=== PATIENT | female | born 1975 | race Caucasian/White ===

== ENCOUNTER → 2017-11-22 19:11 | Outpatient (REF) | payer MEDICAID, SELFPAY ==
--- NOTE | 2017-11-22 18:00 | SKI_PTH ---
PATIENT: Betzy Singh LOC: [facility] U#:[id number] AGE/SX: 49/F ROOM: RE11/22/[address]: Jordon John : 1975 BED: DIS: SPEC #: [id number] RECD: 11/23/17 12:29 STATUS: WALTER HARVEY #: [id number] MATILDE: 11/22/17 18:[address]: Jordon John DEPT: Surgical Specimen RECD BY: Gita Diaz ENTERED: 11/23/17 12:29 SP TYPE: RIKKI BELTRAN DR: Ana María Garcia Tissues: 1 - SKIN BIOPSY(SHAVE/PUNCH) 2 - SKIN BIOPSY(SHAVE/PUNCH) Procedures: SKIN LEVEL 4 Comments: [id number]
== END ==
LOC: NCHCN 19:11
PROVIDERS: PCP Nurse Practitioner Family; Visit Provider Specialist/Technologist Athletic Trainer
DX: D23.72 Other benign neoplasm of skin of left lower limb, including hip (principal); D23.71 Other benign neoplasm of skin of right lower limb, including hip
CPT/HCPCS: 88305

== ENCOUNTER 2018-07-29 08:40 | Outpatient (REF) | payer MEDICAID, SELFPAY ==
[2018-07-29 20:17] LABS: Cholesterol 170 mg/dL (50-200); Glucose 96 mg/dL (70-100); HDL Cholesterol 38 mg/dL (40-60); LDL CHOLESTEROL 110 mg/dL (<100); Potassium 3.8 mmol/L (3.5-5.1); Triglyceride 59 mg/dL (30-150)
== END 2018-07-29 09:00 ==
LOC: NCHCN 08:40
PROVIDERS: PCP Nurse Practitioner Family; Visit Provider Nurse Practitioner Family
DX: R06.83 Snoring (principal); F32.9 Major depressive disorder, single episode, unspecified; K30 Functional dyspepsia; Z00.00 Encounter for general adult medical examination without abnormal findings; M89.8X1 Other specified disorders of bone, shoulder
CPT/HCPCS: 80061; 82947; 83721; 84132

== ENCOUNTER 2018-10-29 17:46 | Emergency (ER) | payer MEDICAID, SELFPAY ==
[2018-10-29 17:52] VITALS: BP 136/91; PULSE 92; RESP 18; TEMP 36.8; O2SAT 97
--- NOTE | 2018-10-29 18:10 | W.ED.GENAD ---
Discharge Plan Disposition Patient Disposition: HOME Condition: Improving Discharge Details Chief Complaint: EarProblem Clinical Impression: Right otitis externa Primary Care Provider: Katty Abdul ED Provider: Luiz Bae Home Meds and New Rx's Prescriptions: Continued Stool Softener 50 MG capsule 1 cap PO DAILY RF: 0 fexofenadine [Aller-ease] 180 MG tablet 1 tab PO DAILY RF: 0 pseudoephedrine HCl 60 MG tablet 1 tab PO DAILY RF: 0 ibuprofen 800 MG tablet 800 mg PO TID PRN PRNQty: 30 RF: 0 multivitamin Capsule 1 cap PO DAILY RF: 0 Discharge Instructions Instructions: Otitis Externa (ED) Additional Instructions: Please use Ciprodex to right ear twice daily for 5 to 7 days time. Return for worsening discomfort or any other acute concerns. Please follow-up with your doctor if not improving in 3 days Medical Decision Making 43-year-old female with right ear pain after swimming. She did describe slapping the water but I do not appreciate that there is evidence of a right tympanic membrane rupture. Most consistent with acute otitis externa. Will treat with Ciprodex drops. She understands homecare as well as follow-up/return precautions. HPI General Mode of arrival: ambulatory. Date/Time Provider Initiated Documentation: 10/29/18 17:49. Limitations to Documentation: no limitations. Information obtained by: patient. History of Present Illness 43 year old F presents to the emergency department with the chief complaint of Right ear pain after some, Quality is described as constant, and is localized to the head and right. Patient reports no radiation. Patient started experiencing this hour(s) and it has been constant. No relieving factors improve symptom(s), No exacerbating factors reported . Patient notes no other symptoms.. Patient did receive the following treatments prior to arrival, none Related Data Home Medications Medication Instructions Recorded Confirmed Stool Softener 1 cap PO DAILY 09/12/14 10/29/18 fexofenadine [Aller-ease] 1 tab PO DAILY 09/12/14 10/29/18 ibuprofen 800 mg PO TID PRN PRN #30 tablet 09/12/14 10/29/18 pseudoephedrine HCl 1 tab PO DAILY 09/12/14 10/29/18 multivitamin 1 cap PO DAILY 10/29/18 10/29/18 Previous Rx's Medication Instructions Recorded ibuprofen 800 mg PO TID PRN PRN #30 tablet 09/12/14 Allergies Allergy/AdvReac Type Severity Reaction Status Date / Time Penicillins Allergy Skin Rash Unverified 10/29/18 17:55 enviornmental AdvReac Mild head Uncoded 09/12/14 16:20 congestion General Stated Complaint: EarProblem ERICK: 4 Review of Systems Review of Systems No recent illness. 4 systems reviewed and otherwise negative [facility] Social History Smoking/Tobacco Use Status: Never Alcohol Intake: never Drug use: Never Do you feel safe at home: Yes Do you feel safe in your relationship?: Yes Exam Narrative Exam Narrative: GEN: awake, alert, oriented 3. Pleasant, well groomed, interactive. HEAD: Normocephalic, atraumatic ENT: Mucous membranes moist, oropharynx unremarkable, External ear exam unremarkable. The right external ear canal is swollen with mild cobblestoning present. Unable to completely visualize the right tympanic membrane but do appreciate good light reflex with great fluorescent TM. Left tympanic membrane unremarkable EYES: PERRL, EOMI NECK: Full ROM, no AMANDA, no menigismus Neuro: Grossly normal neurologic exam, conversant, interactive. Psych: Speech fluent, thoughts congruent, affect normal Course Vital Signs Temperature 36.8 C 10/29/18 17:52 Pulse 92 H 10/29/18 17:52 Respiratory Rate 18 10/29/18 17:52 Blood Pressure 136/91 H 10/29/18 17:52 Pulse Oximetry 97 10/29/18 17:52 Temperature 36.8 C 10/29/18 17:52 Temperature Source Tympanic 10/29/18 17:52 Pulse 92 H 10/29/18 17:52 Respiratory Rate 18 10/29/18 17:52 Respiratory Effort Non-Labored 10/29/18 17:54 Blood Pressure 136/91 H 10/29/18 17:52 Blood Pressure Position Sitting 10/29/18 17:52 Pulse Oximetry 97 10/29/18 17:52 Oxygen Delivery Method Room Air 10/29/18 17:52 Oxygen Flow Rate 0 10/29/18 17:52 Pain Level 10 10/29/18 17:57
[2018-10-29] MEDS: Ciprofloxacin/Dexameth. 7.5 ML BTL AD (18:16)
== END 2018-10-29 18:30 | disposition home or self-care (01) ==
PROVIDERS: Emergency Provider Emergency Medicine; PCP Nurse Practitioner Family
DX: H60.501 Unspecified acute noninfective otitis externa, right ear (principal)
CPT/HCPCS: 99283

== ENCOUNTER 2020-08-30 16:01 | Outpatient (REF) | payer MEDICAID, SELFPAY ==
[2020-08-30 16:28] LABS: ALT 28 U/L (14-59); AST 17 U/L (15-37); Albumin 3.9 g/dL (3.4-5.0); Alkaline Phosphatase 63 U/L (46-116); BUN 9 mg/dL (7-18); Bilirubin, Total 0.5 mg/dL (0.2-1.0); CREATININE 0.9 mg/dL (0.55-1.02); Calcium 9.3 mg/dL (8.5-10.1); Calculated LDL 112 mg/dL (<100); Chloride 103 mmol/L (98-107); Cholesterol 180 mg/dL (<200); Glucose 97 mg/dL (74-106); HDL Cholesterol 38 mg/dL (40-60); Potassium 3.8 mmol/L (3.5-5.1); Sodium 140 mmol/L (136-145); Total Protein 7.4 g/dL (6.4-8.2); Triglyceride 151 mg/dL (<150)
== END 2020-08-30 16:02 | disposition home or self-care (01) ==
LOC: NCHCN 16:01
PROVIDERS: PCP Nurse Practitioner Family; Visit Provider Physician Assistant Medical
DX: Z13.220 Encounter for screening for lipoid disorders (principal); Z13.228 Encounter for screening for other metabolic disorders; Z00.00 Encounter for general adult medical examination without abnormal findings
CPT/HCPCS: 80053; 80061

== ENCOUNTER 2021-04-08 22:03 | Emergency (ER) | payer MEDICAID, SELFPAY ==
[2021-04-08 22:05] VITALS: BP 144/93; PULSE 83; RESP 18; TEMP 36.2; O2SAT 98
--- NOTE | 2021-04-08 22:15 | ED.GENADUL_ITS ---
Discharge Plan Disposition Patient Disposition: HOME Condition: Stable Discharge Details Clinical Impression: Corneal abrasion Primary Care Provider: Katty Abdul ED Provider: Master Bender Home Meds and New Rx's Prescriptions: Continued Stool Softener 50 MG capsule 1 cap PO DAILY RF: 0 fexofenadine [Aller-ease] 180 MG tablet 1 tab PO DAILY RF: 0 pseudoephedrine HCl 60 MG tablet 1 tab PO DAILY RF: 0 ibuprofen 800 MG tablet 800 mg PO TID PRN PRNQty: 30 RF: 0 multivitamin Capsule 1 cap PO DAILY RF: 0 Discharge Instructions Instructions: Corneal Abrasion (ED) Additional Instructions: you can take 1000mg tylenol and 600mg ibuprofen every 6 hours as needed if pain not improving by call Ángelae for an appointment if you feel more ill, have severe worsening pain or decrease in vision return to the emergency department use the antibiotic ointment 3 times a day for 5 days Medical Decision Making 45 yo female comes in with right eye pain. She states her 6 year old child was near her, rolled over and hit her in the right eye and has had pain since so came here. Denies fevers or discharge or vision changes. She localizes it to the surface of the eye on the superior part of her eye. No perioribtal swelling, left conjunctiva normal, right conjunctiva has erythema. PERRL and eomi. No visible foreign body on exam nor on inner eyelids. Tetracaine placed with immediate relief of pain. iop 14 in the left and 15 in the right. She has a 2mm corneal abrasion at the 12 oclock position superior to the iris and no findings to suggest globe rupture. left eye acuity is 20/30 and right eye is 20/25. Will start her on erytheromycin ointment to prevent infection and advised if not better within 2 days to see her auricular detoxification specialist, states she sees Kerry. Return precautions given Differential Diagnosis Differential Diagnosis: corneal abrasion, foreign body, conjunctivitis HPI General Mode of arrival: ambulatory . Date/Time Provider Initiated Documentation: 04/08/21 22:04 . Limitations to Documentation: no limitations . Information obtained by: patient . History of Present Illness 45 year old F presents to the emergency department with the chief complaint of right eye pain, described as moderate, Quality is described as aching, and is localized to the eyes. Patient started experiencing this hour(s) (3) and it has been constant. No relieving factors improve symptom(s), No exacerbating factors reported . Patient notes no other symptoms.. Patient did receive the following treatments prior to arrival, none Related Data Home Medications Medication Instructions Recorded Confirmed Stool Softener 1 cap PO DAILY 09/12/14 04/08/21 fexofenadine [Aller-ease] 1 tab PO DAILY 09/12/14 04/08/21 ibuprofen 800 mg PO TID PRN PRN #30 tablet 09/12/14 04/08/21 pseudoephedrine HCl 1 tab PO DAILY 09/12/14 04/08/21 multivitamin 1 cap PO DAILY 10/29/18 04/08/21 Previous Rx's Medication Instructions Recorded ibuprofen 800 mg PO TID PRN PRN #30 tablet 09/12/14 Allergies Allergy/AdvReac Type Severity Reaction Status Date / Time Penicillins Allergy Skin Rash Unverified 04/08/21 22:07 enviornmental AdvReac Mild head Uncoded 04/08/21 22:07 congestion General Stated Complaint: EyeProblem ERICK: 4 Review of Systems All systems reviewed & are unremarkable except as noted in HPI and below Constitutional Constitutional: Denies chills, Denies fever(s) and Denies weakness Cardiovascular Cardiovascular: Denies chest pain and Denies dyspnea Respiratory Respiratory: Denies cough and Denies dyspnea Gastrointestinal Gastrointestinal: Denies abdominal pain, Denies nausea and Denies vomiting Musculoskeletal Musculoskeletal: Denies joint swelling Neurologic Neurologic: Denies weakness PFSH All Active Problems (Updated 04/08/21 @ 22:26 by Master Bender MD) Corneal abrasion (Acute) Social History Smoking/Tobacco Use Status: Never Smoking risk assessment performed?: Yes Alcohol Intake: never Drug use: Never Do you feel safe at home: Yes Do you feel safe in your relationship?: Yes Exam Const General: no acute distress Orientation: alert HENMT Head: normal to inspection Ears: external ears normal General nose exam: external nose normal Mouth: moist mucous membranes Eyes Alignment and Position: alignment normal Pupils: PERRL Neck Neck: normal visual inspection Resp Effort & Inspection: normal respiratory effort and able to speak in complete sentences Cardio Rate: regular rate GI Palpation: soft and nontender Skin General skin exam: no rashes or lesions noted Neuro General: patient alert and patient oriented x3 Extrem General: normal to inspection Psych Mental Status: mental status grossly normal Course Vital Signs Vital signs: Vital Signs Temperature 36.2 C L 04/08/21 22:05 Pulse 83 04/08/21 22:05 Respiratory Rate 18 04/08/21 22:05 Blood Pressure 144/93 H 04/08/21 22:05 Pulse Oximetry 98 04/08/21 22:05 Temperature 36.2 C L 04/08/21 22:05 Temperature Source Temporal Artery Scan 04/08/21 22:05 Pulse 83 04/08/21 22:05 Respiratory Rate 18 04/08/21 22:05 Respiratory Effort Non-Labored 04/08/21 22:08 Blood Pressure 144/93 H 04/08/21 22:05 Pulse Oximetry 98 04/08/21 22:05 Oxygen Delivery Method Room Air 04/08/21 22:05 Oxygen Flow Rate 0 04/08/21 22:05 Pain Level 10 04/08/21 22:05
[2021-04-08] MEDS: Balanced Salt Solution 15 ML BTL OP (22:23)
[2021-04-08] MEDS: Erythromycin Ophth Oint 3.5 GM TUBE OP (22:23)
[2021-04-08] MEDS: Tetracaine 0.5% 4 ML BTL OP (22:23)
[2021-04-08] MEDS: Fluorescein STRIPS 100/BOX 1 MG OP (22:24)
[2021-04-08 22:26] VITALS: BP 144/93; PULSE 83; RESP 18; TEMP 36.2; O2SAT 98
== END 2021-04-08 22:07 | disposition home or self-care (01) ==
PROVIDERS: Emergency Provider Emergency Medicine; PCP Nurse Practitioner Family
DX: S05.01XA Injury of conjunctiva and corneal abrasion without foreign body, right eye, initial encounter (principal); W50.0XXA Accidental hit or strike by another person, initial encounter
CPT/HCPCS: 99283

== ENCOUNTER 2021-05-18 07:10 | Emergency (ER) | payer MEDICAID, SELFPAY ==
[2021-05-18 07:14] VITALS: BP 131/86; PULSE 77; RESP 12; TEMP 35.8; O2SAT 98
--- NOTE | 2021-05-18 07:22 | W.ED.GENAD ---
Discharge Plan Disposition Patient Disposition: HOME Condition: Improving Discharge Details Clinical Impression: Abrasion of cornea, right Primary Care Provider: Katty Abdul ED Provider: Luiz Bae Home Meds and New Rx's Prescriptions: Continued Stool Softener 50 MG capsule 1 cap PO DAILY 0RF fexofenadine [Aller-ease] 180 MG tablet 1 tab PO DAILY 0RF pseudoephedrine HCl 60 MG tablet 1 tab PO DAILY 0RF ibuprofen 800 MG tablet 800 mg PO TID PRN PRNQty: 30 0RF multivitamin Capsule 1 cap PO DAILY 0RF Discharge Instructions Instructions: Corneal Abrasion (ED) Additional Instructions: Please call [facility] on Wednesday for a follow-up and recheck. Erythromycin ointment to right eye 4-5 times daily while awake. May apply cool compress to area to reduce discomfort. Wearing sunglasses may aid in decreasing discomfort as well. Return to the ER if you develop an increasing and more severe pain, purulent discharge from the eye, or any other acute concerns. Medical Decision Making 45-year-old female who does wear contact lenses. After placing contact lenses this morning she felt a foreign body sensation in her right eye, removed the contact lenses with persistence of the foreign body sensation. She has had a previous corneal abrasion to that eye requiring serial visits to optometry and a contact lens Band-Aid. Today appears to be a simple subtle corneal abrasion. Will treat with erythromycin ointment and have her follow-up in optometry for recheck. HPI General Mode of arrival: ambulatory. Date/Time Provider Initiated Documentation: 05/18/21 07:20. Limitations to Documentation: no limitations. Information obtained by: patient. History of Present Illness 45 year old F presents to the emergency department with the chief complaint of R eye discomfort, described as mild, Quality is described as constant, and is localized to the eyes and right. Patient reports no radiation. Patient started experiencing this hour(s) and it has been constant. improves with No relieving factors improve symptom(s), No exacerbating factors reported . Patient notes denies fever/chills and headaches. Patient did receive the following treatments prior to arrival, none Related Data Home Medications Medication Instructions Recorded Confirmed docusate sodium 50 mg capsule 1 cap PO DAILY 09/12/14 05/18/21 (Stool Softener) fexofenadine 180 mg tablet 1 tab PO DAILY 09/12/14 05/18/21 (Aller-ease) ibuprofen 800 mg tablet 800 mg PO TID PRN PRN #30 tablet 09/12/14 05/18/21 pseudoephedrine HCl 60 mg tablet 1 tab PO DAILY 09/12/14 05/18/21 multivitamin 1 cap PO DAILY 10/29/18 05/18/21 Previous Rx's Medication Instructions Recorded ibuprofen 800 mg tablet 800 mg PO TID PRN PRN #30 tablet 09/12/14 Allergies Allergy/AdvReac Type Severity Reaction Status Date / Time Penicillins Allergy Skin Rash Unverified 05/18/21 07:17 enviornmental AdvReac Mild head Uncoded 05/18/21 07:17 congestion General Stated Complaint: EyeProblem ERICK: 4 Review of Systems Narrative: Denies recent illness. Otherwise healthy person. PFSH All Active Problems (Updated 05/18/21 @ 07:37 by Luiz Bae MD) Abrasion of cornea, right (Acute) Social History Smoking/Tobacco Use Status: Never Smoking risk assessment performed?: Yes Alcohol Intake: never Drug use: Never Substance use type: does not use Do you feel safe at home: Yes Do you feel safe in your relationship?: Yes Exam Narrative Exam Narrative: GEN: awake, alert, oriented 3. Pleasant, well groomed, interactive. HEAD: Normocephalic, atraumatic ENT: Mucous membranes moist, oropharynx unremarkable, External ear exam unremarkable EYES: PERRL, EOMI, there is subtle corneal abrasion superiorly above the axis of vision. No foreign body appreciated. Negative Ana Cristina sign. Neuro: Grossly normal neurologic exam, conversant, interactive. Psych: Speech fluent, thoughts congruent, affect normal Course Vital Signs Vital signs: Vital Signs Temperature 35.8 C L 05/18/21 07:14 Pulse 77 05/18/21 07:14 Respiratory Rate 12 05/18/21 07:14 Blood Pressure 131/86 05/18/21 07:14 Pulse Oximetry 98 05/18/21 07:14 Temperature 35.8 C L 05/18/21 07:14 Pulse 77 05/18/21 07:14 Respiratory Rate 12 05/18/21 07:14 Respiratory Effort Non-Labored 05/18/21 07:16 Blood Pressure 131/86 05/18/21 07:14 Blood Pressure Position Sitting 05/18/21 07:14 Pulse Oximetry 98 05/18/21 07:14 Oxygen Delivery Method Room Air 05/18/21 07:14 Oxygen Flow Rate 0 05/18/21 07:14 Pain Level 8 05/18/21 07:14
[2021-05-18] MEDS: Fluorescein STRIPS 100/BOX 1 MG OP (07:24)
[2021-05-18] MEDS: Tetracaine 0.5% 4 ML BTL OP (07:25)
[2021-05-18] MEDS: Erythromycin Ophth Oint 3.5 GM TUBE OP (07:26)
== END 2021-05-18 07:51 | disposition home or self-care (01) ==
PROVIDERS: Emergency Provider Emergency Medicine; PCP Nurse Practitioner Family
DX: S05.01XA Injury of conjunctiva and corneal abrasion without foreign body, right eye, initial encounter (principal); X58.XXXA Exposure to other specified factors, initial encounter
CPT/HCPCS: 99283

== ENCOUNTER 2021-06-14 17:52 | Emergency (ER) | payer MEDICAID, SELFPAY ==
[2021-06-14 17:57] VITALS: BP 129/79; PULSE 93; RESP 17; TEMP 36.7; O2SAT 96
--- NOTE | 2021-06-14 18:09 | ED.GENADUL_ITS ---
Discharge Plan Disposition Patient Disposition: HOME Condition: Stable Discharge Details Clinical Impression: Acute bacterial conjunctivitis of right eye Primary Care Provider: Katty Abdul ED Provider: Jessica Almanza Home Meds and New Rx's Prescriptions: Continued fexofenadine [Aller-ease] 180 MG tablet 1 tab PO DAILY 0RF ibuprofen 800 MG tablet 800 mg PO TID PRN PRNQty: 30 0RF multivitamin Capsule 1 cap PO DAILY 0RF No Action Stool Softener 50 MG capsule 1 cap PO DAILY 0RF pseudoephedrine HCl 60 MG tablet 1 tab PO DAILY 0RF Discharge Instructions Instructions: Conjunctivitis (ED) Additional Instructions: Use the eyedrops 3 times daily while awake for the next 7 to 10 days. Wash hands after touching your eye. This can be contagious. [facility] with [facility] if no improvement in the next 3 to 5 days. Please take Tylenol or Ibuprofen with food every 4-6 hours as needed for pain and swelling. Follow up with primary care provider in 3-5 days. Return to ED sooner if any worsening or concerns. Increase oral fluids. Referrals: Katty Abdul [Primary Care Provider] - Medical Decision Making 46-year-old female presents to the ER with chief complaint of right eye irritation, tearing and erythema which began this morning. Patient states that she woke up this way. She does have a history approximately month ago of a corneal abrasion and was on erythromycin ointment. Patient denies any known injury or foreign body. She also reports that she has crusting upon awakening in the morning denies any pruritus denies any sensitivity to light. Lemus lab exam completed no visualized foreign body or uptake in dye. No corneal abrasion. I do suspect bacterial conjunctivitis due to the patient's report of discharge and crusty in the morning and irritation. We will give patient polymyxin eyedrops and instructed to use 4 times daily while awake x7 to 10 days. Instructed follow-up with vending machine attendant. HPI General Mode of arrival: ambulatory . Date/Time Provider Initiated Documentation: 06/14/21 17:53 . Limitations to Documentation: no limitations . Information obtained by: patient and RN notes reviewed . HPI Narrative: 46-year-old female presents to the ER with chief complaint of right eye irritation, tearing and erythema which began this morning. Patient states that she woke up this way. She does have a history approximately month ago of a corneal abrasion and was on erythromycin ointment. Patient denies any known injury or foreign body. She also reports that she has crusting upon awakening in the morning denies any pruritus denies any sensitivity to light. Related Data Home Medications Medication Instructions Recorded Confirmed docusate sodium 50 mg capsule 1 cap PO DAILY 09/12/14 06/14/21 (Stool Softener) fexofenadine 180 mg tablet 1 tab PO DAILY 09/12/14 06/14/21 (Aller-ease) ibuprofen 800 mg tablet 800 mg PO TID PRN PRN #30 tablet 09/12/14 06/14/21 pseudoephedrine HCl 60 mg tablet 1 tab PO DAILY 09/12/14 06/14/21 multivitamin 1 cap PO DAILY 10/29/18 06/14/21 Previous Rx's Medication Instructions Recorded ibuprofen 800 mg tablet 800 mg PO TID PRN PRN #30 tablet 09/12/14 Allergies Allergy/AdvReac Type Severity Reaction Status Date / Time Penicillins Allergy Skin Rash Unverified 06/14/21 18:03 enviornmental AdvReac Mild head Uncoded 06/14/21 18:03 congestion General Stated Complaint: EyeProblem REICK: 4 Review of Systems All systems reviewed & are unremarkable except as noted in HPI and below Eyes Eyes: Reports eye discharge, Reports irritation, Denies itchy eyes and Denies photophobia Allergic/Immunologic Allergic/Immunologic: Denies itchy eyes PFSH All Active Problems (Updated 06/14/21 @ 18:30 by Jessica Almanza) Abrasion of cornea, right (Acute) Acute bacterial conjunctivitis of right eye (Acute) Social History Smoking/Tobacco Use Status: Never Smoking risk assessment performed?: Yes Alcohol Intake: never Drug use: Never Substance use type: does not use Do you feel safe at home: Yes Do you feel safe in your relationship?: Yes Exam Eyes Alignment and Position: alignment normal Conjunctivae: conjunctival abnormality right conjunctival injection Cornea: corneas normal and fluorescein used (No uptake in dye, ) Pupils: PERRL EOM: EOM intact bilaterally Direct ophthalmoscopy: normal light reflex Course Vital Signs Vital signs: Vital Signs Temperature 36.7 C 06/14/21 17:57 Pulse 93 H 06/14/21 17:57 Respiratory Rate 17 06/14/21 17:57 Blood Pressure 129/79 06/14/21 17:57 Pulse Oximetry 96 06/14/21 17:57 Temperature 36.7 C 06/14/21 17:57 Temperature Source Temporal Artery Scan 06/14/21 17:57 Pulse 93 H 06/14/21 17:57 Respiratory Rate 17 06/14/21 17:57 Respiratory Effort Non-Labored 06/14/21 18:00 Blood Pressure 129/79 06/14/21 17:57 Blood Pressure Position Sitting 06/14/21 17:57 Pulse Oximetry 96 06/14/21 17:57 Oxygen Delivery Method Room Air 06/14/21 17:57 Oxygen Flow Rate 0 06/14/21 17:57 Pain Level 7 06/14/21 17:57 Comment 06/14/21 17:57
[2021-06-14] MEDS: Fluorescein STRIPS 100/BOX 1 MG OP (18:20)
[2021-06-14] MEDS: Balanced Salt Solution 15 ML BTL OP (18:20)
[2021-06-14] MEDS: Tetracaine 0.5% 4 ML BTL OP (18:20)
[2021-06-14] MEDS: Polymyxin B/Trimethoprim Ophth Soln 10 ML BTL OD (18:32)
== END 2021-06-14 18:33 | disposition home or self-care (01) ==
PROVIDERS: Emergency Provider Registered Nurse Emergency; PCP Nurse Practitioner Family
DX: H10.31 Unspecified acute conjunctivitis, right eye (principal)
CPT/HCPCS: 99283

== ENCOUNTER 2021-07-13 06:41 | Emergency (ER) | payer MEDICAID, SELFPAY ==
[2021-07-13 06:50] VITALS: BP 136/94; PULSE 80; RESP 16; TEMP 36.8; O2SAT 98
--- NOTE | 2021-07-13 07:24 | ED.GENADUL_ITS ---
Discharge Plan Disposition Patient Disposition: HOME Condition: Good Discharge Details Clinical Impression: Abrasion of cornea, right, Allergic rhinitis Primary Care Provider: Katty Abdul ED Provider: Tyson Hoang Home Meds and New Rx's Prescriptions: Continued Stool Softener 50 MG capsule 1 cap PO DAILY 0RF fexofenadine [Aller-ease] 180 MG tablet 1 tab PO DAILY 0RF pseudoephedrine HCl 60 MG tablet 1 tab PO DAILY 0RF ibuprofen 800 MG tablet 800 mg PO TID PRN PRNQty: 30 0RF multivitamin Capsule 1 cap PO DAILY 0RF Discharge Instructions Instructions: Corneal Abrasion (ED) Additional Instructions: At this time you have a corneal abrasion. Please take the polymyxin eyedrops that you are taking before. Please take them as directed. Do not wear any contact lenses for the next 1 to 2 weeks or until you are reassessed by your vacuum forming machine operator/ocean export agent. Please also use the artificial tears that you have in your affected eye 2-3 times per day. If you notice any worsening of your symptoms, or any new symptoms such as vomiting, diarrhea, fever, chills, shortness of breath, chest pain, numbness, weakness, or fainting , please return immediately to the emergency department for reevaluation. Please follow up with your primary care provider as soon as possible for reassessment and reevaluation. As always, it was a pleasure participating in your medical care today. Referrals: Katty Abdul [Primary Care Provider] - Discharge Data Discharge Date/Time-TO BE ENTERED AT DEPARTURE: 07/13/21 07:30 Medical Decision Making This is a 46-year-old female with a past medical history of allergic rhinitis who presents today for evaluation of discharge coming from both of her eyes, so some mild pain and irritation in her right eye. She admits to nasal congestion as well. Symptoms started 3 to 4 days ago. She has a contact lens wear. She did recently have a bacterial conjunctivitis, for which she was prescribed and has taken polymyxin eyedrops. She has not been on these for some time though. She has no other complaints at this time. No visual changes, no difficulty with opening or closing her eyes. No headache. Exam demonstrates mild conjunctivitis of the right eye. Small amount of corneal uptake at 3 o'clock position of the right eye. Eversion of the lid shows no evidence of foreign body. No evidence of significant corneal ulcer. Recommend that the patient restarts her antibiotic drop, Keflex contact lens use until reassessed by an vacuum forming machine operator. Scheme Technician, and continues to take her home antiallergy medications. Discussed red flags which to return. I have extensively reviewed the treatment plan and discharge instructions with the patient. I have addressed all patient concerns at this time. The patient was made aware of what symptoms to monitor for that would warrant a return to the emergency department. Discussed the plan with the patient, they demonstrate v erbal understanding and agreement with our assessment and plan at this time. The documentation in this chart was dictated using [employer] dictation software. Please excuse any dictation errors. HPI General Date/Time Provider Initiated Documentation: 07/13/21 07:22 . HPI Narrative: This is a 46-year-old female with a past medical history of allergic rhinitis who presents today for evaluation of discharge coming from both of her eyes, so some mild pain and irritation in her right eye. She admits to nasal congestion as well. Symptoms started 3 to 4 days ago. She has a contact lens wear. She did recently have a bacterial conjunctivitis, for which she was prescribed and has taken polymyxin eyedrops. She has not been on these for some time though. She has no other complaints at this time. No visual changes, no difficulty with opening or closing her eyes. No headache. Related Data Home Medications Medication Instructions Recorded Confirmed docusate sodium 50 mg capsule 1 cap PO DAILY 09/12/14 07/13/21 (Stool Softener) fexofenadine 180 mg tablet 1 tab PO DAILY 09/12/14 07/13/21 (Aller-ease) ibuprofen 800 mg tablet 800 mg PO TID PRN PRN #30 tablet 09/12/14 07/13/21 pseudoephedrine HCl 60 mg tablet 1 tab PO DAILY 09/12/14 07/13/21 multivitamin 1 cap PO DAILY 10/29/18 07/13/21 Previous Rx's Medication Instructions Recorded ibuprofen 800 mg tablet 800 mg PO TID PRN PRN #30 tablet 09/12/14 Allergies Allergy/AdvReac Type Severity Reaction Status Date / Time Penicillins Allergy Skin Rash Unverified 07/13/21 06:56 enviornmental AdvReac Mild head Uncoded 07/13/21 06:56 congestion General Stated Complaint: EyeProblem ERICK: 4 Review of Systems All systems reviewed & are unremarkable except as noted in HPI and below PFSH All Active Problems Acute bacterial conjunctivitis of right eye (Acute) Abrasion of cornea, right (Acute) Allergic rhinitis (Acute) Social History Smoking/Tobacco Use Status: Never Smoking risk assessment performed?: Yes Alcohol Intake: never Drug use: Never Substance use type: does not use Do you feel safe at home: Yes Do you feel safe in your relationship?: Yes Exam Narrative Exam Narrative: 1.Const: Well-nourished, Well-developed, appearing stated age 2.Eyes: PERRL, mild conjunctival injection on the right. Righteye: EOMI, PERRL, Peripheral vision intact. No nystagmus. No clinical signs of septal/orbital cellulitis, no redness around the eye, no proptosis. No hyphema, no signs of trauma around the eye, no periorbital emphysema. No sluggishness of the pupil. No ophthalmoplegia. No afferent pupillary defect. Fluorescein uptake is present on exam is in the 3 o'clock position on the cornea of the right eye, negative Ana Cristina sign. Eversion of the upper and lower lid shows no evidence of foreign body. 3.ENT: Atraumatic external nose and ears. Moist MM. Neck: Symmetric, trachea midline, No thyromegaly. 4.CVS: +S1/S2, No murmurs or gallops. Peripheral pulses 2+ and equal in all extremities. Brisk capillary refill in all extremities. 5.RESP: Unlabored respiratory effort. Clear to auscultation bilaterally. No wheezes rales or rhonchi 6.GI: Soft, Nontender/Nondistended, No hepatosplenomegaly. No guarding or rebound. 7.MSK: Normocephalic/Atraumatic, Extremities w/o deformity or ttp No cyanosis or clubbing, Normal movement of all extremities 8.Skin: Warm, Dry. No rashes or lesions. 9.Neuro: stoker erector II-XII grossly intact. Sensation grossly intact, no focal neurologic deficits. 10.Psych: (AAO) x3. Appropriate mood and affect Course Vital Signs Vital signs: Vital Signs Temperature 36.8 C 07/13/21 06:50 Pulse 80 07/13/21 06:50 Respiratory Rate 16 07/13/21 06:50 Blood Pressure 136/94 H 07/13/21 06:50 Pulse Oximetry 98 07/13/21 06:50 Temperature 36.8 C 07/13/21 06:50 Temperature Source Temporal Artery Scan 07/13/21 06:50 Pulse 80 07/13/21 06:50 Respiratory Rate 16 07/13/21 06:50 Respiratory Effort Non-Labored 07/13/21 06:53 Blood Pressure 136/94 H 07/13/21 06:50 Blood Pressure Position Sitting 07/13/21 06:50 Pulse Oximetry 98 07/13/21 06:50 Oxygen Delivery Method Room Air 07/13/21 06:50 Oxygen Flow Rate 0 07/13/21 06:50 Pain Level 9 07/13/21 06:50
[2021-07-13] MEDS: Fluorescein STRIPS 100/BOX 1 MG (07:29)
[2021-07-13] MEDS: Tetracaine 0.5% 4 ML BTL (07:29)
== END 2021-07-13 07:30 | disposition home or self-care (01) ==
PROVIDERS: Emergency Provider Student in an Organized Health Care Education/Training Program; PCP Nurse Practitioner Family
DX: S05.01XA Injury of conjunctiva and corneal abrasion without foreign body, right eye, initial encounter (principal); X58.XXXA Exposure to other specified factors, initial encounter; J30.9 Allergic rhinitis, unspecified
CPT/HCPCS: 99283

== ENCOUNTER 2021-11-29 12:43 | Emergency (ER) | payer MEDICAID, SELFPAY ==
[2021-11-29 12:46] VITALS: BP 155/98; PULSE 72; RESP 18; TEMP 37.2; O2SAT 99
--- NOTE | 2021-11-29 13:16 | ED.GENADUL_ITS ---
Discharge Plan Disposition Patient Disposition: HOME Condition: Stable Discharge Details Clinical Impression: Abrasion, corneal Primary Care Provider: Katty Abdul ED Provider: Sarath Norwood Home Meds and New Rx's Prescriptions: New ofloxacin 0.3 % drops See Rx Instructions .ROUTE .COMPLEX Qty: 5 0RF Rx Instructions: put 1-2 drps into affected eye(s) every 2-4 h x 2 days, then 1-2 drps 4 times/day days 3-7 No Action Stool Softener 50 MG capsule 1 cap PO DAILY fexofenadine [Aller-ease] 180 MG tablet 1 tab PO DAILY pseudoephedrine HCl 60 MG tablet 1 tab PO DAILY ibuprofen 800 MG tablet 800 mg PO TID PRN PRNQty: 30 0RF multivitamin Capsule 1 cap PO DAILY Discharge Instructions Instructions: Corneal Abrasion (ED) Additional Instructions: Please follow-up with your primary care physician. Please return the emergency department if you develop any worsening symptoms such as worsening pain redness drainage or change in vision or other abnormal symptoms Medical Decision Making 46-year-old female history of prior corneal abrasion presents with discomfort in right eye as well as some tearing and redness over the last day, was cleaning a dionna room with boxes the other day. Patient is fully tearing of right has 20/20 vision, evidence of punctate corneal abrasions involving cornea overlying mid pupil, no evidence of foreign body, eye was irrigated with normal saline. Patient be started on ofloxacin drops. Given home care instructions and return precautions. HPI General Date/Time Provider Initiated Documentation: 11/29/21 12:44 . HPI Narrative: 46-year-old female presents with right eye redness and discomfort that she noticed this morning she does have a history of a corneal abrasion. Patient Dors that she was cleaning out a dionna room with boxes yesterday and today. Does not remember any direct trauma. Denies change in vision. Related Data Home Medications Medication Instructions Recorded Confirmed docusate sodium 50 mg capsule 1 cap PO DAILY 09/12/14 11/29/21 (Stool Softener) fexofenadine 180 mg tablet 1 tab PO DAILY 09/12/14 11/29/21 (Aller-ease) ibuprofen 800 mg tablet 800 mg PO TID PRN PRN ##30 09/12/14 11/29/21 pseudoephedrine HCl 60 mg tablet 1 tab PO DAILY 09/12/14 11/29/21 multivitamin 1 cap PO DAILY 10/29/18 11/29/21 ofloxacin 0.3 % eye drops See Rx Instructions ophthalmic 11/29/21 (eye) .COMPLEX #5 mL Previous Rx's Medication Instructions Recorded ibuprofen 800 mg tablet 800 mg PO TID PRN PRN ##30 09/12/14 ofloxacin 0.3 % eye drops See Rx Instructions ophthalmic 11/29/21 (eye) .COMPLEX #5 mL Allergies Allergy/AdvReac Type Severity Reaction Status Date / Time Penicillins Allergy Skin Rash Unverified 07/13/21 06:56 enviornmental AdvReac Mild head Uncoded 07/13/21 06:56 congestion General Stated Complaint: EyeProblem ERICK: 4 Review of Systems Narrative: Review of Systems Constitutional: negative Eyes: Eye discomfort ENT: negative Cardiovascular: negative Respiratory: negative Gastrointestinal: negative : negative Musculoskeletal: negative Skin: negative Neurologic: negative Psych: negative PFSH All Active Problems (Updated 11/29/21 @ 13:21 by Sarath Norwood MD) Abrasion, corneal (Acute) Social History Smoking/Tobacco Use Status: Never Smoking risk assessment performed?: Yes Alcohol Intake: never Drug use: Never Substance use type: does not use Do you feel safe at home: Yes Do you feel safe in your relationship?: Yes Exam Narrative Exam Narrative: Physical Examination General: alert, awake, cooperative, resting comfortably, no acute distress HEENT: OD 20/20 normal conjunctiva slight tearing, 2 punctate superficial areas of fluorescein uptake, no foreign bodies appreciated on slit-lamp; OS: 20/20 normal conjunctiva; normocephalic, atraumatic; PERRL, EOM intact, conjunctiva normal; no nasal discharge; moist mucous membranes, oral and pharyngeal mucosa normal, tolerating secretions Neck: supple, trachea midline; full ROM Chest: normal to inspection Respiratory: normal respiratory effort, speaking in full sentences, clear to auscultation, no wheezing, rales or rhonchi Cardiac: regular rate, regular rhythm, S1S2 intact, no murmurs rubs or gallops GI: abdomen soft, non-tender, non-distended; no palpable mass or hepatosplenomegaly Skin: no lesions, rashes or trauma appreciated Neuro: AAOx3, normal speech, moving all extremities Psych: Appropriate mood and affect Course Vital Signs Vital signs: Vital Signs Temperature 37.2 C 11/29/21 12:46 Pulse 72 11/29/21 12:46 Respiratory Rate 18 11/29/21 12:46 Blood Pressure 155/98 H 11/29/21 12:46 Pulse Oximetry 99 11/29/21 12:46 Temperature 37.2 C 11/29/21 12:46 Temperature Source Temporal Artery Scan 11/29/21 12:46 Pulse 72 11/29/21 12:46 Respiratory Rate 18 11/29/21 12:46 Blood Pressure 155/98 H 11/29/21 12:46 Blood Pressure Position Sitting 11/29/21 12:46 Pulse Oximetry 99 11/29/21 12:46 Oxygen Delivery Method Room Air 11/29/21 12:46 Oxygen Flow Rate 0 11/29/21 12:46
[2021-11-29 13:28] VITALS: BP 155/98; PULSE 72; RESP 18; TEMP 37.2; O2SAT 99
== END 2021-11-29 13:28 | disposition home or self-care (01) ==
LOC: ER 13:29
PROVIDERS: Emergency Provider Emergency Medicine; PCP Nurse Practitioner Family
DX: S05.01XA Injury of conjunctiva and corneal abrasion without foreign body, right eye, initial encounter (principal); X58.XXXA Exposure to other specified factors, initial encounter; Y93.E9 Activity, other interior property and clothing maintenance
CPT/HCPCS: 99283; 99284

== ENCOUNTER 2022-05-02 07:38 | Emergency (ER) | payer MEDICAID, SELFPAY ==
[2022-05-02 07:47] VITALS: BP 131/86; PULSE 76; RESP 18; TEMP 36.3; O2SAT 98
[2022-05-02 08:12] VITALS: BP 131/86; PULSE 76; RESP 18; TEMP 36.3; O2SAT 98
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
[2022-05-02] MEDS: Balanced Salt Solution 15 ML BTL OP (08:15)
[2022-05-02] MEDS: Fluorescein STRIPS 100/BOX 1 MG OP (08:15)
[2022-05-02] MEDS: Erythromycin Ophth Oint 3.5 GM TUBE OP (08:15)
--- NOTE | 2022-05-02 08:19 | NUR.NOTE ---
per Dr. Bae, referral made for Wednesday for [facility] for a right corneal abrasion. Put the referral in the care mangement's box for follow up appt assistance.Nursing Note:
== END 2022-05-02 08:23 | disposition home or self-care (01) ==
PROVIDERS: Emergency Provider Emergency Medicine; PCP Nurse Practitioner Family
DX: S05.01XA Injury of conjunctiva and corneal abrasion without foreign body, right eye, initial encounter (principal); W20.8XXA Other cause of strike by thrown, projected or falling object, initial encounter
CPT/HCPCS: 99283; 99284

== ENCOUNTER 2023-09-20 19:38 | Emergency (ER) | payer BC, SELFPAY ==
[2023-09-20 19:41] VITALS: BP 145/92; PULSE 99; RESP 16; TEMP 36.7; O2SAT 97
--- NOTE | 2023-09-20 19:47 | ED.GENADUL_ITS ---
Discharge Plan Disposition Patient Disposition: Home Condition: Stable Discharge Details Clinical Impression: Abrasion of cornea, right Primary Care Provider: Katty Gillis ED Provider: Miguel Angel Lyman Home Meds and New Rx's Prescriptions: New ciprofloxacin HCl 0.3 % drops See Rx Instructions .ROUTE .COMPLEX Qty: 2.5 0RF Rx Instructions: put 2 drps in affected eye then 4 times/day x5days No Action Stool Softener 50 MG capsule 1 cap PO DAILY fexofenadine [Aller-Ease] 180 MG tablet 1 tab PO DAILY pseudoephedrine HCl 60 MG tablet 1 tab PO DAILY ibuprofen 800 MG tablet 800 mg PO TID PRN PRNQty: 30 0RF multivitamin Capsule 1 cap PO DAILY ofloxacin 0.3 % drops See Rx Instructions .ROUTE .COMPLEX Qty: 5 0RF Rx Instructions: put 1-2 drps into affected eye(s) every 2-4 h x 2 days, then 1-2 drps 4 times/day days 3-7 hydrocodone-acetaminophen 5-325 mg tablet 1 tab PO Q8H PRN (Reason: pain) Qty: 7 0RF Discharge Instructions Instructions: Corneal Abrasion ED Additional Instructions: use the drops provided : 2 drops 4 times daily can take motrin or tylenol for pain please follow up with [facility] tomorrow do not use your contact lenses until cleared for use by eye doctor Referrals: [facility] [Outside] [facility] General Date/Time Provider Initiated Documentation: 09/20/23 19:46 . Limitations to Documentation: no limitations . Information obtained by: patient . HPI Narrative: 48-year-old female without significant past medical history presents for evaluation of right eye discomfort. She reports that she woke up from sleep yesterday and had a foreign body sensation in her right eye. She states that she has irrigated her eye and symptoms have not improved. She states that she has noted excessive tearing and redness in her eye. This significant visual change. She did wear her contact lenses today. She states that when she blinks it feels like there is something in her eye. Related Data Home Medications Medication Instructions Recorded Confirmed docusate sodium 50 mg capsule 1 cap PO DAILY 09/12/14 05/02/22 (Stool Softener) fexofenadine 180 mg tablet 1 tab PO DAILY 09/12/14 05/02/22 (Aller-Ease) ibuprofen 800 mg tablet 800 mg PO TID PRN PRN ##30 09/12/14 05/02/22 pseudoephedrine HCl 60 mg tablet 1 tab PO DAILY 09/12/14 05/02/22 multivitamin 1 cap PO DAILY 10/29/18 05/02/22 ofloxacin 0.3 % eye drops See Rx Instructions ophthalmic 11/29/21 05/02/22 (eye) .COMPLEX #5 mL hydrocodone 5 mg-acetaminophen 325 1 tab PO Q8H PRN pain #7 tabs 05/02/22 mg tablet ciprofloxacin HCl 0.3 % eye drops See Rx Instructions ophthalmic 09/20/23 (eye) .COMPLEX #2.5 mL Previous Rx's Medication Instructions Recorded ibuprofen 800 mg tablet 800 mg PO TID PRN PRN ##30 09/12/14 ofloxacin 0.3 % eye drops See Rx Instructions ophthalmic 11/29/21 (eye) .COMPLEX #5 mL hydrocodone 5 mg-acetaminophen 325 1 tab PO Q8H PRN pain #7 tabs 05/02/22 mg tablet ciprofloxacin HCl 0.3 % eye drops See Rx Instructions ophthalmic 09/20/23 (eye) .COMPLEX #2.5 mL Allergies Allergy/AdvReac Type Severity Reaction Status Date / Time Penicillins Allergy Skin Rash Unverified 05/02/22 07:49 enviornmental AdvReac Mild head Uncoded 05/02/22 07:49 congestion General Stated Complaint: EyeProblem ERICK: 4 Exam Narrative Exam Narrative: Review of Systems: All systems reviewed & are unremarkable except as noted in HPI and below Well-developed, no acute distress NCAT Pupils equal reactive to light, no irregularity in the pupil, right eye with injected conjunctive on excessive tearing, no signs of trauma Visual acuity 20/20 in both eyes, 20/25 in affected eye Fluorescein uptake noted at edge of visual axis at 4:00. There is a deep abrasion, circular approximately 2 to 3 mm in diameter, no obvious foreign body RRR Unlabored respiratory effort Nondistended abdomen Extremities w/o deformity, no cyanosis, no edema No rashes or lesions. no focal neurologic deficits Appropriate mood and affect Course Vital Signs Vital signs: Vital Signs Temperature 36.7 C 09/20/23 19:41 Pulse 99 H 09/20/23 19:41 Respiratory Rate 16 09/20/23 19:41 Blood Pressure 145/92 H 09/20/23 19:41 Pulse Oximetry 97 09/20/23 19:41 Temperature 36.7 C 09/20/23 19:41 Temperature Source Temporal Artery Scan 09/20/23 19:41 Pulse 99 H 09/20/23 19:41 Respiratory Rate 16 09/20/23 19:41 Blood Pressure 145/92 H 09/20/23 19:41 Blood Pressure Position Sitting 09/20/23 19:41 Pulse Oximetry 97 09/20/23 19:41 Oxygen Delivery Method Room Air 09/20/23 19:41 Oxygen Flow Rate 0 09/20/23 19:41 Pain Level 8 09/20/23 19:41 Medical Decision Making Emergent evaluation of right eye pain. Initial differential includes corneal abrasion, foreign body, conjunctivitis. Examination does not reveal significant visual acuity deficit. There is no evidence of trauma and no history of t rauma. The patient's examination is concerning for a large corneal abrasion size is almost concerning for an ulceration. Patient has had abrasion in similar area. This occurred in April 2022. I did review the medical record at that time. She is a contact lens wearer and did wear her contact lenses today. Advised that she cannot continue to wear contact lenses until this injury heals. Because of her contact lens use. Will start ciprofloxacin drops. She was provided with these drops here in the emergency department and discharged with an additional prescription to cherry picker operator if she runs out of medication. I advised the patient that she needs to follow-up with the eye clinic tomorrow for reevaluation and months monitoring of her symptoms, particularly given her high risk with contact lens use. Return precautions advised. Discharged in good condition. Medical Records Medical records reviewed: Yes I reviewed the patient's medical records. Quality:[facility] Health Related Social Needs: No Data to Display PFSH All Active Problems Abrasion of cornea, right (Acute) Social History Smoking/Tobacco Use Status: Never Smoking risk assessment performed?: Yes Alcohol Intake: never Drug use: Never Substance use type: does not use Housing: apartment Do you feel safe at home: Yes Do you feel safe in your relationship?: Yes
--- NOTE | 2023-09-21 05:35 | NUR.NOTE ---
Pt placed on care management referral list to [facility] for a corneal abrasion to be seen today per Dr. Lyman Nursing Note:
== END 2023-09-20 20:30 | disposition home or self-care (01) ==
LOC: ER 20:35
PROVIDERS: Emergency Provider Emergency Medicine; PCP Nurse Practitioner Family
DX: S05.01XA Injury of conjunctiva and corneal abrasion without foreign body, right eye, initial encounter (principal); X58.XXXA Exposure to other specified factors, initial encounter
CPT/HCPCS: 99283

== ENCOUNTER 2024-10-23 17:48 | Outpatient (REF) | payer BC, SELFPAY ==
[2024-10-23 19:10] LABS: Abs Immature Grans 0.06 10^3/uL (0.0-0.06); HCT 42.6 % (36.0-46.0); HGB 14.4 g/dL (11.2-15.7); Immature Grans % 0.6 %; MCH 32.1 pg (27.0-33.0); MCHC 33.8 % (32.0-36.0); MCV 95 fL (80-95); MPV 9.4 fL (8.0-11.0); Platelet Count 285 10^3/uL (130-400); RBC 4.49 10^6/uL (3.93-5.22); RDW 11.9 % (11.7-14.6); RDW-SD 41.4 fL; WBC 9.51 10^3/uL (4.4-10.8)
[2024-10-23 19:28] LABS: Calculated LDL 129 mg/dL (<100); Cholesterol 231 mg/dL (<200); HDL Cholesterol 37 mg/dL (>or=50); TSH (W/Ref FT4) 2.50 uIU/mL (0.36-3.74); Triglyceride 328 mg/dL (<150)
[2024-10-23 19:35] LABS: Hemoglobin A1C 5.4 % (<5.7)
== END 2024-10-23 17:49 | disposition home or self-care (01) ==
LOC: NCHCN 17:48
PROVIDERS: Visit Provider Physician Assistant Medical
DX: Z00.00 Encounter for general adult medical examination without abnormal findings (principal); F32.9 Major depressive disorder, single episode, unspecified; Z13.220 Encounter for screening for lipoid disorders; Z13.1 Encounter for screening for diabetes mellitus
CPT/HCPCS: 80061; 83036; 84443; 85025

== ENCOUNTER 2024-11-05 15:35 | Emergency (ER) | payer BC, SELFPAY ==
[2024-11-05 15:38] VITALS: BP 153/95; PULSE 81; RESP 18; TEMP 36.7; O2SAT 98
[2024-11-05 15:41] VITALS: BP 153/95; PULSE 81; RESP 18; TEMP 36.7; O2SAT 98
--- NOTE | 2024-11-05 16:18 | W.ED.GENAD ---
Discharge Plan Disposition Patient Disposition: Home Condition: Good Discharge Details Clinical Impression: Dental infection Primary Care Provider: Unknown,Unknown ED Provider: Lizet Griffiths Home Meds and New Rx's Prescriptions: New clindamycin HCl [Cleocin HCl] 150 mg capsule 450 mg PO TID 7 Days Qty: 63 0RF No Action Stool Softener 50 MG capsule 1 cap PO DAILY fexofenadine [Aller-Ease] 180 MG tablet 1 tab PO DAILY pseudoephedrine HCl 60 MG tablet 1 tab PO DAILY ibuprofen 800 MG tablet 800 mg PO TID PRN PRNQty: 30 0RF multivitamin Capsule 1 cap PO DAILY hydrocodone-acetaminophen 5-325 mg tablet 1 tab PO Q8H PRN (Reason: pain) Qty: 7 0RF sertraline 100 mg tablet 100 mg PO DAILY Discharge Instructions Instructions: Dental Pain ED Additional Instructions: Please call your dentist first thing in the morning to schedule follow-up appointment for definitive management of your dental infection. You are being prescribed clindamycin to treat dental infection. Please take the full course as prescribed. Note that this may cause belly upset, so I recommend taking it with activia yogurt or probiotic supplements. For pain you may use 650 mg Tylenol and 600 mg ibuprofen together every 8 hours. Heat and/or ice packs can also be helpful applied to the cheek. Use salt water rinses to help keep your mouth clean. [place] regularly twice a day with a soft toothbrush. Avoid smoking, as this can dry out your mouth Return to emergency care if you develop any symptoms concerning for extension of infection such as fevers over 100.4 degrees, swelling inside your mouth/under your tongue, difficulty swallowing, difficulty opening your mouth fully, general feeling of unwellness, or if you are very worried you need to be rechecked again immediately Discharge Data Discharge Date/Time-TO BE ENTERED AT DEPARTURE: 11/05/24 16:42 HPI General Date/Time Provider Initiated Documentation: 11/05/24 15:45. HPI Narrative: Betzy is a 49-year-old female presents emergency department today for left lower right tooth pain. She reports that she had this evaluated on 711 by dentist, says that at that time it was just sensitivity, but has since progressed to a sharp pain that radiates up her jaw and keeps her awake at night. Also reports mild swelling to the inner gumline, no pus drainage. Has been night feeling hot, but has not had a fever. Denies chills, headaches, vision changes, difficulty opening mouth, ear pain, sore throat, general malaise. Has been using Anbesol and Orajel, as well as Tylenol ibuprofen without much improvement of symptoms. Surgical history remarkable for obesity removal and root canals, but none on this tooth. Allergies to penicillin and doxycycline. Denies recent antibiotic PAST SURGICAL HISTORY: [place] teeth removal Root canals (not on the affected tooth) Related Data Home Medications ?Medication ?Instructions ?Recorded ?Confirmed docusate sodium 50 mg capsule 1 cap PO DAILY 09/12/14 11/05/24 (Stool Softener) fexofenadine 180 mg tablet 1 tab PO DAILY 09/12/14 11/05/24 (Aller-Ease) ibuprofen 800 mg tablet 800 mg PO TID PRN PRN ##30 09/12/14 11/05/24 pseudoephedrine HCl 60 mg tablet 1 tab PO DAILY 09/12/14 11/05/24 multivitamin 1 cap PO DAILY 10/29/18 05/02/22 hydrocodone 5 mg-acetaminophen 325 1 tab PO Q8H PRN pain #7 tabs 05/02/22 11/05/24 mg tablet clindamycin HCl 150 mg capsule 450 mg (3 x 150 mg) PO TID 7 days 11/05/24 (Cleocin HCl) #63 caps sertraline 100 mg tablet 100 mg PO DAILY 11/05/24 11/05/24 Previous Rx's ?Medication ?Instructions ?Recorded ibuprofen 800 mg tablet 800 mg PO TID PRN PRN ##30 09/12/14 hydrocodone 5 mg-acetaminophen 325 1 tab PO Q8H PRN pain #7 tabs 05/02/22 mg tablet clindamycin HCl 150 mg capsule 450 mg (3 x 150 mg) PO TID 7 days 11/05/24 (Cleocin HCl) #63 caps Allergies Allergy/AdvReac Type Severity Reaction Status Date / Time Penicillins Allergy Skin Rash Unverified 11/05/24 15:39 enviornmental AdvReac Mild head Uncoded 11/05/24 15:39 congestion General Stated Complaint: DentalOral ERICK: 4 Exam Narrative Exam Narrative: General Appearance: Normal. Alert and oriented, no acute distress Vital signs: Within normal limits. HEENT: Swelling at gumline (R lower molar), no obvious abscess. +broken tooth, # 31. No swelling under tongue. No trismus, clear voice. Neck: no cervical or submandibular LAD. Full painless ROM of neck. Skin: Warm and dry, no rash. Psychiatric: Normal. Course Vital Signs Vital signs: Vital Signs Temperature 36.7 C 11/05/24 15:38 Pulse 81 11/05/24 15:38 Respiratory Rate 18 11/05/24 15:38 Blood Pressure 153/95 H 11/05/24 15:38 Pulse Oximetry 98 11/05/24 15:38 Temperature 36.7 C 11/05/24 15:41 Temperature Source Oral 11/05/24 15:41 Pulse 81 11/05/24 15:41 Respiratory Rate 18 11/05/24 15:41 Blood Pressure 153/95 H 11/05/24 15:41 Pulse Oximetry 98 11/05/24 15:41 Medical Decision Making Initial Assessment: 49-year-old female with escalating dental pain, likely due to infection. Swelling at gumline noted. DDx includes but is not limited to: dental abscess, dental caries. No red flags concerning for airway compromise or deep space infection such as Dmitri's Angina. ED Course: - Examined oral cavity, noted swelling at gumline. - Recommended Tylenol and ibuprofen every 8 hours. - Suggested warm/cold packs, salt water gargles. - Prescribed clindamycin. Final Assessment: Dental pain likely due to infection. Swelling at gumline noted. Treatment with clindamycin, pain management with Tylenol and ibuprofen, advised oral hygiene measures. Clinical Impression: - Uncomplicated dental infection Disposition: - Discharge: Home. Return precautions for new symptoms like difficulty opening mouth, increased swelling, difficulty swallowing, fevers, chills. - Follow-Up: Dentist Patient Education: Pain management with Tylenol and ibuprofen every 8 hours, warm/cold packs, salt water gargles. Return precautions discussed. Patient consented to the use of MELISSA PFSH All Active Problems (Updated 11/05/24 @ 16:23 by Lizet Toscano) Dental infection (Acute) Social History Smoking/Tobacco Use Status: Never Smoking risk assessment performed?: Yes Alcohol Intake: never Drug use: Never Substance use type: does not use Housing: apartment Do you feel safe at home: Yes Do you feel safe in your relationship?: Yes
[2024-11-05] MEDS: Clindamycin 150 MG CAP 450 MG PO (16:28)
== END 2024-11-05 16:42 | disposition home or self-care (01) ==
LOC: ER 16:49
PROVIDERS: Emergency Provider Nurse Practitioner Family
DX: K04.7 Periapical abscess without sinus (principal)
CPT/HCPCS: 99283

== ENCOUNTER 2024-11-14 18:50 | Emergency (ER) | payer BC, SELFPAY ==
[2024-11-14 18:52] VITALS: BP 148/93; PULSE 91; RESP 18; TEMP 37.1; O2SAT 98
--- NOTE | 2024-11-14 19:00 | DI.CT_ITS ---
Exam(s) CT NECK W EXAM: CT NECK W CLINICAL HISTORY: R neck swelling, failed abx for dental infxn. TECHNIQUE: Imaging Protocol: Axial computed tomography images with coronal and sagittal reformatted images were created and reviewed. CONTRAST MATERIAL: Intravenous: Omnipaque 350 Contrast volume:100mL COMPARISON: No exams were available for comparison FINDINGS: Visualized intracranial structures: Within normal limits. Orbits and orbital soft tissues: Within normal limits. Visualized paranasal sinuses: Within normal limits. Pharynx: Within normal limits. Larynx: Within normal limits. Retropharyngeal space: Within normal limits. Parotids/submandibular: Within normal limits. Thyroid gland: Within normal limits. Lymphadenopathy: There are few mildly enlarged lymph nodes seen in the submandibular region. The largest is on the right and measures 1.3 x 0.9 cm. This is likely reactive. Trachea: Within normal limits. Lung apices: Within normal limits. Bones: Within normal limits for the patient's age. The ossification identified adjacent to the hyoid bone is likely of no clinical or acute significance. There is no surrounding air, inflammation to suggest foreign body. Carotids/Jugular: Within normal limits. Soft tissues: Within normal limits. Teeth: There is dental amalgam seen bilaterally which may limit the examination due to artifact. No definite periapical lucencies are seen to suggest periapical abscess. There is a small lucency anterior to the dental amalgam of the right anterior mandibular molar. Correlation with physical exam is recommended. IMPRESSION: 1. No evidence of a soft tissue abscess. 2. Dental amalgam seen bilaterally which may limit the examination. No periapical lucencies are seen to suggest an abscess. 3. There is a small lucency anterior to the dental Kaz on the right anterior mandibular molar which may represent a dental cavity. Please correlate clinically. 4. Small mildly enlarged right submandibular lymph node which may be reactive. RADIATION DOSE DELIVERED: 251.69mGy.cm Total DLP 251.69mGy.cm Total DLP DATA REPOSITORY: All CT scans at this facility are submitted to the National Radiology Data Registry (NRDR) Dose Index Registry (DIR) with the [employer] ([employer]). RADIATION OPTIMIZATION: All CT scans at this facility use at least one of these dose optimization techniques: automated exposure control; mA and/or kV adjustment per patient size (includes targeted exams where dose is matched to clinical indication); or iterative reconstruction.
--- NOTE | 2024-11-14 19:04 | W.ED.GENAD ---
Discharge Plan Disposition Patient Disposition: Home Condition: Stable Discharge Details Clinical Impression: Dental infection Primary Care Provider: Unknown,Unknown ED Provider: Tyson Escobedo Home Meds and New Rx's Prescriptions: New clindamycin HCl [Cleocin HCl] 150 mg capsule 450 mg PO TID 10 Days Qty: 90 0RF Continued Stool Softener 50 MG capsule 1 cap PO DAILY fexofenadine [Aller-Ease] 180 MG tablet 1 tab PO DAILY pseudoephedrine HCl 60 MG tablet 1 tab PO DAILY ibuprofen 800 MG tablet 800 mg PO TID PRN PRNQty: 30 0RF multivitamin Capsule 1 cap PO DAILY hydrocodone-acetaminophen 5-325 mg tablet 1 tab PO Q8H PRN (Reason: pain) Qty: 7 0RF sertraline 100 mg tablet 100 mg PO DAILY Discharge Instructions Instructions: Clindamycin (Systemic), Dental Pain ED Additional Instructions: You were seen in the emergency department for your continued dental pain. You need to see a dentist and the need to drill and fix this tooth. Please use therapeutic dosing of Tylenol (acetamenophen) & Advil (ibuprofen) in an alternating fashion as follows: Take 1000mg of Tylenol every 6 hours without missing doses- that is 4 times per day. [place] in between the Tylenol dosings, take 400-600mg of Advil also on a 6 hour schedule, that is also 4 times per day. The daily maximum dosing of Tylenol is 4000mg, and the daily maximum dosing of Advil is 2400mg. This is safe to do for weeks. Please note that some common cold medications & prescription pain medications may contain acetamenophen and you need to read OTC drug labels and factor that in to maximum daily dosings. I have sent you additional course of clindamycin, please use topical Orajel on area of pain, your CT scan shows no evidence of abscess or deep space infection of the neck, please return for any vocal changes or reduced range of motion of the jaw. Discharge Data Discharge Date/Time-TO BE ENTERED AT DEPARTURE: 11/14/24 20:36 HPI General Date/Time Provider Initiated Documentation: 11/14/24 19:04. HPI Narrative: 49 year-old female presents to ED today by POV/ambulating with a chief complaint of dental pain, R lower 2nd molar, received 7 days of clindamycin previous here, still having pain. Quality described as throbbing, feels like theres some right-sided submandibular swelling and vocal change, no radiation to drooling, facial erythema, trismus, fever. Severity is described as moderate. Palliating factors include clindamycin with persistent pain. Provoking factors include nothing specific. Events leading up to the incident/Associated Symptoms: Patient has not arranged dental follow-up. Patient not anticoagulated. Related Data Home Medications ?Medication ?Instructions ?Recorded ?Confirmed docusate sodium 50 mg capsule 1 cap PO DAILY 09/12/14 11/14/24 (Stool Softener) fexofenadine 180 mg tablet 1 tab PO DAILY 09/12/14 11/14/24 (Aller-Ease) ibuprofen 800 mg tablet 800 mg PO TID PRN PRN ##30 09/12/14 11/14/24 pseudoephedrine HCl 60 mg tablet 1 tab PO DAILY 09/12/14 11/14/24 multivitamin 1 cap PO DAILY 10/29/18 11/14/24 hydrocodone 5 mg-acetaminophen 325 1 tab PO Q8H PRN pain #7 tabs 05/02/22 11/14/24 mg tablet sertraline 100 mg tablet 100 mg PO DAILY 11/05/24 11/14/24 clindamycin HCl 150 mg capsule 450 mg (3 x 150 mg) PO TID 10 days 11/14/24 (Cleocin HCl) #90 caps Previous Rx's ?Medication ?Instructions ?Recorded ibuprofen 800 mg tablet 800 mg PO TID PRN PRN ##30 09/12/14 hydrocodone 5 mg-acetaminophen 325 1 tab PO Q8H PRN pain #7 tabs 05/02/22 mg tablet clindamycin HCl 150 mg capsule 450 mg (3 x 150 mg) PO TID 10 days 11/14/24 (Cleocin HCl) #90 caps Allergies Allergy/AdvReac Type Severity Reaction Status Date / Time Penicillins Allergy Skin Rash Unverified 11/14/24 18:57 enviornmental AdvReac Mild head Uncoded 11/14/24 18:57 congestion General Stated Complaint: DentalOral ERICK: 4 Review of Systems All systems reviewed & are unremarkable except as noted in HPI and below Exam Narrative Exam Narrative: GENERAL APPEARANCE: Well-nourished, non-toxic, awake and alert, atraumatic, no acute distress. SKIN: Warm, pink, dry, intact, without rashes/lesions/ulcerations. HEAD: Normocephalic, atraumatic, normal hair distribution for gender/age. EYES: Normal conjunctiva, no exudates on lids/lashes. ENT: Nares patent, no circumoral cyanosis, no facial swelling, right submandibular lymphadenopathy, uvula midline, no gingival abscess seen in the right lower jaw, no vocal changes, managing secretions well NECK: Supple, trachea midline, painless cervical ROM. LUNGS/CHEST: Non-labored respirations, normal A/P diameter, symmetrical expansion, no chest wall deformity HEART (CV/PV): No peripheral edema, no JVD. ABDOMEN: Soft, non-distended, no guarding. MSK: Normal ROM, no swelling/deformity to bilateral UEs or LEs, moving all extremities without weakness, no cyanosis, spine midline without tenderness, normal curvature. NEURO: Mental Status AAOx4 - alert to person, place, time, events No facial droop, no forehead involvement. Motor: No focal weakness - strength 5/5 in bilateral UEs and LEs, proximal and distal, symmetric. Sensory: sensation intact to light touch globally. Gait normal: patient ambulated without ataxia into ED room. PSYCH: euthymic, cooperative, pleasant, appropriate speech Course Vital Signs Vital signs: Vital Signs Temperature 37.1 C 11/14/24 18:52 Pulse 91 H 11/14/24 18:52 Respiratory Rate 18 11/14/24 18:52 Blood Pressure 148/93 H 11/14/24 18:52 Pulse Oximetry 98 11/14/24 18:52 Temperature 37.1 C 11/14/24 18:52 Temperature Source Oral 11/14/24 18:52 Pulse 91 H 11/14/24 18:52 Respiratory Rate 18 11/14/24 18:52 Blood Pressure 148/93 H 11/14/24 18:52 Pulse Oximetry 98 11/14/24 18:52 Oxygen Delivery Method Room Air 11/14/24 18:52 Oxygen Flow Rate 0 11/14/24 18:52 Pain Level 5 11/14/24 18:52 Medical Decision Making This dictation utilizes [id number] dictation software and may contain unedited grammatical errors. 49 year-old female presents to ED today by POV/ambulating with a chief complaint of dental pain, R lower 2nd molar, received 7 days of clindamycin previous here, still having pain. Quality described as throbbing, feels like theres some right-sided submandibular swelling and vocal change, no radiation to drooling, facial erythema, trismus, fever. Severity is described as moderate. Palliating factors include clindamycin with persistent pain. Provoking factors include nothing specific. Events leading up to the incident/Associated Symptoms: Patient has not arranged dental follow-up. Patients' medical history: noncontributory. Family and social history: noncontributory. Pertinent exam findings / vital signs include R lower 2nd molar with caries, no gingival abscess, uvula midline, mild submandibular lymphadenopathy, no trismus, clear voice. Differential / pathologies of concern include DOG POUND ATTENDANT, sarina's angina, dental infection. Diagnostic studies of: -CT Neck w Contrast, CBC, CMP. - CBC benign - CMP benign - CT neck shows lymphadenopathy without abscess Interventions of: -Rx for clindamycin extended- PCN allergy. ED Course/Assessment/Plan: 49-year-old female presents with continued dental pain after finishing 7 days of clindamycin and still having throbbing in the gums below the right second molar, no gingival abscess or trismus, mild lymphadenopathy to the right submandibular gland, no deep space infection on CT, labs benign. Plan to extend the patient's clindamycin due to penicillin allergy and recommend urgent dental follow-up which she has not made any headway on yet, strict return criteria for vocal changes or reduced range of motion of the jaw. Findings not consistent with deep space infection, trismus, large abscess, Sarina's angina. Disposition of Dental Infection. Patient verbalized understanding of the plan and return to ED criteria and engaged in shared decision making. Medical Records Medical records reviewed: Yes I reviewed the patient's medical records. Imaging Data Radiologic Study: Attestation: I personally reviewed and interpreted this imaging study as follows: Imaging: CT Scan Radiologist's impression: Exam: CT Neck With Contrast Exam date and time: 11/14/2024 7:22 PM Age: 49 years old Clinical indication: Mass, lump, or swelling in neck; Right; Prior surgery; Surgery date: 6+ months; Surgery type: [place] teeth removed x 15 yrs ago; Additional info: R neck swelling, failed abx for dental infxn TECHNIQUE: Imaging protocol: Computed tomography of the neck with contrast. Contrast material: OMNI 350; Contrast volume: 100 ml; Contrast route: INTRAVENOUS (IV); COMPARISON: No relevant prior studies available. FINDINGS: Paranasal sinuses: The visualized paranasal sinuses appear well-aerated. Mastoid air cells: The mastoid air cells appear well-aerated. Auditory system: The middle ear cavities appear clear. Salivary glands: The submandibular salivary glands and parotid glands appear normal. Teeth: There appears to be a small dental cavity in the crown of the right anterior mandibular molar anterior to indwelling dental amalgam. There is possibly also a tiny dental cavity in the crown of the right posterior mandibular molar on image 26 of series 7. There is subtle periapical lucency associated with the roots of the anterior right mandibular molar suspicious for chronic apical periodontitis or a small periapical abscess. Pharynx: The nasopharynx, oropharynx, and hypopharynx appear grossly normal. The thyroid and cricoid cartilages appear intact. Larynx: The larynx appear symmetric. Thyroid: The thyroid gland appears normal. Trachea: The visualized trachea appears normal. Lungs: The lung apices appear clear. Lymph nodes: There is asymmetric prominence of submental lymph nodes on the right. Vasculature: There is atherosclerotic calcification at the carotid bifurcations bilaterally. Bones/joints: No acute cervical fracture or malalignment is seen. There is mild-moderate discogenic degeneration at C5-C6. There is an unusual 3 mm x 3 mm x 7 mm ossification adjacent to the posterior right tip of the hyoid bone, uncertain etiology and clinical significance, images 35-38 of series 3 and 46 of series 5. Soft tissues: There is asymmetric thickening of the right platysma with overlying hazy subcutaneous density. No frankly organized drainable soft tissue fluid collection is seen. No retropharyngeal fluid or fluid collection is seen. IMPRESSION: 1. Small dental cavity in the crown of the right anterior mandibular molar anterior to indwelling dental amalgam. Subtle periapical lucency associated with the roots of the anterior right mandibular molar suspicious for chronic apical periodontitis or a small periapical abscess. Possible tiny dental cavity in the crown of the right posterior mandibular molar. Follow up with a dentist is recommended. 2. Asymmetric prominence of submental lymph nodes on the right with thickening of the overlying platysma and mild hazy subcutaneous edema suggesting reactive edema or inflammation of the overlying soft tissues, but no frankly organized drainable soft tissue abscess. 3. Unusual 3 mm x 3 mm x 7 mm ossification adjacent to the posterior right tip of the hyoid bone, uncertain etiology and clinical significance. A sequela of prior trauma, unusual developmental finding, or unusual soft tissue calcification could have this appearance. Although a retained foreign body is not excluded, there is no obvious inflammatory response or fluid collection associated with this finding. Dictated and Authenticated by: Ellis Escamilla MD. Lab Data Lab results reviewed: Yes I reviewed the patient's lab results. Labs: Laboratory Tests Range/Units 11/14/24 19:20 WBC (4.4-10.8) 10^3/uL 10.02 RBC (3.93-5.22) 10^6/uL 4.24 Hgb (11.2-15.7) g/dL 13.4 Hct (36.0-46.0) % 39.6 MCV (80-95) fL 93 MCH (27.0-33.0) pg 31.6 MCHC (32.0-36.0) % 33.8 RDW (11.7-14.6) % 11.8 Plt Count (130-400) 10^3/uL 264 MPV (8.0-11.0) fL 8.7 Immature Gran % % 0.7 Neutrophils % % 64.8 Lymphocytes % % 26.0 Monocytes % % 5.8 Eosinophils % % 2.0 Basophils % % 0.7 Nucleated RBC % (0.0-0.3) % 0.0 Absolute Neutrophils (1.2-6.7) 10^3/uL 6.49 Absolute Lymphocytes (1.2-3.4) 10^3/uL 2.61 Absolute Monocytes (0.1-0.8) 10^3/uL 0.58 Absolute Eosinophils (0.0-0.7) 10^3/uL 0.20 Absolute Basophils (0.0-0.2) 10^3/uL 0.07 Sodium (136-145) mmol/L 136 Potassium (3.5-5.1) mmol/L 3.6 Chloride (98-107) mmol/L 102 Carbon Dioxide (21.0-32.0) mmol/L 26.4 Anion Gap (3-11) mmol/L 7.6 BUN (7-18) mg/dL 13 Creatinine (0.55-1.02) mg/dL 1.0 Est GFR (CKD-EPI 2020) (mL/min/1.73m2) 69.93 Glucose (74-106) mg/dL 126 H Calcium (8.5-10.1) mg/dL 9.1 Total Bilirubin (0.2-1.0) mg/dL 0.3 AST (15-37) U/L 16 ALT (14-59) U/L 25 Alkaline Phosphatase (46-116) U/L 73 Total Protein (6.4-8.2) g/dL 7.5 Albumin (3.4-5.0) g/dL 3.7 PFSH All Active Problems (Updated 11/14/24 @ 20:21 by DEMETRIO Walker) Dental infection (Acute) Social History Smoking/Tobacco Use Status: Never Smoking risk assessment performed?: Yes Alcohol Intake: never Drug use: Never Substance use type: does not use Housing: apartment Do you feel safe at home: Yes Do you feel safe in your relationship?: Yes
[2024-11-14 19:24] LABS: Abs Immature Grans 0.07 10^3/uL (0.0-0.06); HCT 39.6 % (36.0-46.0); HGB 13.4 g/dL (11.2-15.7); Immature Grans % 0.7 %; MCH 31.6 pg (27.0-33.0); MCHC 33.8 % (32.0-36.0); MCV 93 fL (80-95); MPV 8.7 fL (8.0-11.0); Platelet Count 264 10^3/uL (130-400); RBC 4.24 10^6/uL (3.93-5.22); RDW 11.8 % (11.7-14.6); RDW-SD 39.8 fL; WBC 10.02 10^3/uL (4.4-10.8)
[2024-11-14] MEDS: Normal Saline - Diluent 50 ML VIAL IJ (19:28)
[2024-11-14] MEDS: Omnipaque 350 MG/ML 100 ML BTL IJ (19:29)
[2024-11-14] MEDS: Normal Saline Flush 10 ML SYR IVP (19:30)
[2024-11-14 19:41] LABS: ALT 25 U/L (14-59); AST 16 U/L (15-37); Albumin 3.7 g/dL (3.4-5.0); Alkaline Phosphatase 73 U/L (46-116); Anion Gap 7.6 mmol/L (3-11); BUN 13 mg/dL (7-18); Bilirubin, Total 0.3 mg/dL (0.2-1.0); CO2 26.4 mmol/L (21.0-32.0); Calcium 9.1 mg/dL (8.5-10.1); Chloride 102 mmol/L (98-107); Estimated GFR 69.93 (mL/min/1.73m2); Glucose 126 mg/dL (74-106); Potassium 3.6 mmol/L (3.5-5.1); Sodium 136 mmol/L (136-145); Total Protein 7.5 g/dL (6.4-8.2)
--- NOTE | 2024-11-14 20:17 | DI.VRAD_ITS ---
PROCEDURE INFORMATION: Exam: CT Neck With Contrast Exam date and time: 11/14/2024 7:22 PM Age: 49 years old Clinical indication: Mass, lump, or swelling in neck; Right; Prior surgery; Surgery date: 6+ months; Surgery type: [place] teeth removed x 15 yrs ago; Additional info: R neck swelling, failed abx for dental infxn TECHNIQUE: Imaging protocol: Computed tomography of the neck with contrast. Contrast material: OMNI 350; Contrast volume: 100 ml; Contrast route: INTRAVENOUS (IV); COMPARISON: No relevant prior studies available. FINDINGS: Paranasal sinuses: The visualized paranasal sinuses appear well-aerated. Mastoid air cells: The mastoid air cells appear well-aerated. Auditory system: The middle ear cavities appear clear. Salivary glands: The submandibular salivary glands and parotid glands appear normal. Teeth: There appears to be a small dental cavity in the crown of the right anterior mandibular molar anterior to indwelling dental amalgam. There is possibly also a tiny dental cavity in the crown of the right posterior mandibular molar on image 26 of series 7. There is subtle periapical lucency associated with the roots of the anterior right mandibular molar suspicious for chronic apical periodontitis or a small periapical abscess. Pharynx: The nasopharynx, oropharynx, and hypopharynx appear grossly normal. The thyroid and cricoid cartilages appear intact. Larynx: The larynx appear symmetric. Thyroid: The thyroid gland appears normal. Trachea: The visualized trachea appears normal. Lungs: The lung apices appear clear. Lymph nodes: There is asymmetric prominence of submental lymph nodes on the right. Vasculature: There is atherosclerotic calcification at the carotid bifurcations bilaterally. Bones/joints: No acute cervical fracture or malalignment is seen. There is mild-moderate discogenic degeneration at C5-C6. There is an unusual 3 mm x 3 mm x 7 mm ossification adjacent to the posterior right tip of the hyoid bone, uncertain etiology and clinical significance, images 35-38 of series 3 and 46 of series 5. Soft tissues: There is asymmetric thickening of the right platysma with overlying hazy subcutaneous density. No frankly organized drainable soft tissue fluid collection is seen. No retropharyngeal fluid or fluid collection is seen. IMPRESSION: 1. Small dental cavity in the crown of the right anterior mandibular molar anterior to indwelling dental amalgam. Subtle periapical lucency associated with the roots of the anterior right mandibular molar suspicious for chronic apical periodontitis or a small periapical abscess. Possible tiny dental cavity in the crown of the right posterior mandibular molar. Follow up with a dentist is recommended. 2. Asymmetric prominence of submental lymph nodes on the right with thickening of the overlying platysma and mild hazy subcutaneous edema suggesting reactive edema or inflammation of the overlying soft tissues, but no frankly organized drainable soft tissue abscess. 3. Unusual 3 mm x 3 mm x 7 mm ossification adjacent to the posterior right tip of the hyoid bone, uncertain etiology and clinical significance. A sequela of prior trauma, unusual developmental finding, or unusual soft tissue calcification could have this appearance. Although a retained foreign body is not excluded, there is no obvious inflammatory response or fluid collection associated with this finding. Dictated and Authenticated by: Ellis Escamilla MD. Orderin Fanny Mehta MD
[2024-11-14] MEDS: Clindamycin 150 MG CAP 450 MG PO (20:35)
== END 2024-11-14 20:36 | disposition home or self-care (01) ==
PROVIDERS: Emergency Provider Physician Assistant
DX: R68.84 Jaw pain (principal); K04.7 Periapical abscess without sinus
CPT/HCPCS: 99284; 99285; 70491; 80053; 85025; J3490